=== PATIENT | male | born 1945 | race Caucasian/White ===

== ENCOUNTER 2019-05-13 08:28 | Emergency (ER) | payer MEDICARE, OTHER ==
[~2019-05-13] VITALS: Ht 177.8 cm; Wt 105.2 kg
[2019-05-13 08:31] VITALS: BP 140/80
[2019-05-13] MEDS ORDERED: DIPHTH,PERTUSS(ACELL),TET TOX 0.5 ML DISP.SYRIN. VAX IM ONE (09:00)
[2019-05-13] MEDS ORDERED: GELATIN SPONGE SIZE 12-7MM SPONGE. TP ONE (09:00)
--- NOTE | 2019-05-13 09:17 | PHYS DOC ---
Past Medical History Additional Past Medical Histor: ATHERSCLEROSIS Past Surgical History: Other Additional Past Surgical Histo: PVD BILAT LEGS Alcohol Use: Occasionally Drug Use: None Adult General Chief Complaint Chief Complaint: FINGER INJURY HPI HPI 73-year-old male presents to ER for complaints of getting his right middle finger stuck in the gradually more just prior to arrival. Patient reports when the tip of his right middle finger got stuck in the garage door he pulled backwards causing the pad of his finger to be pulled off. Patient denies any other injury. Patient is uncertain of last tetanus update. Patient is right hand dominant. Review of Systems Review of Systems Constitutional: Denies fatigue Musculoskeletal: Reports rt middle finger injury- mild pain at site Integument: Denies rash or skin lesions [] Neurologic: Denies focal weakness or sensory changes [] All other systems were reviewed and found to be within normal limits, except as documented in this note. Current Medications Current Medications Current Medications Medications (Trade) Dose Ordered Sig/Melani Start Time Stop Time Status Last Admin Dose Admin Diphtheria/ Tetanus/Acell Pertussis (Boostrix) 0.5 ml ONCE ONCE 05/13/19 09:00 05/13/19 09:01 DC 05/13/19 09:10 0.5 ML Gelatin (Gelfoam Size 12-7mm) 1 each 1X ONCE 05/13/19 09:00 05/13/19 09:01 DC 05/13/19 09:10 1 EACH Allergies Allergies Allergies Coded Allergies Type Severity Reaction Last Updated Verified Penicillins Allergy Severe RASH 05/13/19 Yes Physical Exam Physical Exam Constitutional: Well developed, well nourished, no acute distress, non-toxic appearance. [] HENT: Normocephalic, atraumatic, bilateral external ears normal, oropharynx moist, no oral exudates, nose normal. [] Eyes: PERRLA, EOMI, conjunctiva normal, no discharge. [] Neck: Normal range of motion, no tenderness, supple, no stridor. [] Cardiovascular:Heart rate regular rhythm, no murmur [] Lungs & Thorax: Bilateral breath sounds clear to auscultation [] Abdomen: Bowel sounds normal, soft, no tenderness, no masses, no pulsatile masses. [] Skin: Warm, dry, no erythema, no rash. [] Back: No tenderness, no CVA tenderness. [] Extremities: No tenderness, no cyanosis, no clubbing, ROM intact, no edema. [] Neurologic: Alert and oriented X 3, normal motor function, normal sensory function, no focal deficits noted. [] Psychologic: Affect normal, judgement normal, mood normal. [] Current Patient Data Vital Signs Vital Signs Date Time Temp Pulse Resp B/P (MAP) Pulse Ox O2 Delivery O2 Flow Rate FiO2 05/13/19 08:31 98.2 65 18 140/80 (100) 99 Room Air 98.2 EKG EKG [] Radiology/Procedures Radiology/Procedures PROCEDURE: FINGER(S) RIGHT Examination: FINGER(S) RIGHT History: Pain, injury to the middle finger distal tip Comparison/Correlation: None Findings: 3 images of the right third digit were obtained including PA view of the hand. Third metacarpal phalangeal joint degenerative narrowing is present. Mild joint space narrowing of the third digit distal interphalangeal joint noted. Mild degenerative narrowing of the first and second metacarpophalangeal joints noted. No acute fracture or bony destruction. Soft tissue swelling about the third digit distally is present. Curvilinear foreign body involving the second digit middle phalangeal level is present and measures 0.75 cm in length. Mild osteopenia. Impression: Degenerative changes particularly involving the third digit. No acute fracture. Foreign body involve the second digit. Correlate with history of injury. Electronically signed by: Alma Mart MD (05/13/2019 9:36 AM) [id number] DICTATED and SIGNED BY: ALMA MART MD DATE: 05/13/19 0936 Course & Med Decision Making Course & Med Decision Making Pertinent Imaging studies reviewed. (See chart for details) Pt was evaluated in the ER for complaints of left middle finger injury. Patient had avulsion to the plantar surface of distal left middle finger no nailbed involvement. X-ray was obtained no acute findings for fracture. X-ray results discussed with patient. Patient had a wound thoroughly cleanse no FB on exam. It was offered pain medication as well as digital block to left middle finger however reported pain to be minimal and preferred no medication or block. Patient had Surgicel gel foam applied to avulsion site- no bleeding thru foam. Dressing was applied an aluminum splint applied to left middle finger. Home wound care education provided. Patient to follow-up for wound recheck in 24-48 hours he plans to follow-up with his primary care physician to find out who they prefer for hand doctor. Patient remained PMS intact in right upper extremity. Patient was updated on tetanus. Will provide patient with prescription for Keflex. Education provided on signs and symptoms to return to ER. Discharge instructions were discussed. Patient to follow-up with primary care physician if symptoms persist or with any concerns. Dragon Disclaimer Dragon Disclaimer This electronic medical record was generated, in whole or in part, using a voice recognition dictation system. Departure Departure Impression: Primary Impression: Avulsion, finger tip Referrals: UNKNOWN PCP NAME (PCP) Patient Instructions: Finger Avulsion, Fingertip Injuries and Amputations Additional Instructions: Follow-up with your primary care physician in one to 2 days for wound reevaluation and to discuss who he would like you to follow-up with for hand specialist. Tylenol and/or ibuprofen as needed for pain as directed on container. Wear the aluminum splint to protect the finger injury. Takes the splint and dressing off to monitor site for infection- with concerns follow-up with your doctor. Scripts Cephalexin (KEFLEX) 500 Mg Capsule 1 CAP PO BID, #14 CAP 0 Refills Prov: KYLE CROWLEY APRN 05/13/19 KYLE CROWLEY APRN May 13, 2019 09:17
--- NOTE | 2019-05-13 09:40 | RAD ---
Examination: FINGER(S) RIGHT History: Pain, injury to the middle finger distal tip Comparison/Correlation: None Findings: 3 images of the right third digit were obtained including PA view of the hand. Third metacarpal phalangeal joint degenerative narrowing is present. Mild joint space narrowing of the third digit distal interphalangeal joint noted. Mild degenerative narrowing of the first and second metacarpophalangeal joints noted. No acute fracture or bony destruction. Soft tissue swelling about the third digit distally is present. Curvilinear foreign body involving the second digit middle phalangeal level is present and measures 0.75 cm in length. Mild osteopenia. Impression: Degenerative changes particularly involving the third digit. No acute fracture. Foreign body involve the second digit. Correlate with history of injury. Electronically signed by: Emre Santizo MD (05/13/2019 9:36 AM) [id number]
[2019-05-13] MEDS ORDERED: CEPH-264 PO (10:09)
== END 2019-05-13 10:20 | disposition home or self-care (01) ==
LOC: ER 08:28
DX: S61.302A Unspecified open wound of right middle finger with damage to nail, initial encounter (principal); Z88.0 Allergy status to penicillin; W23.0XXA Caught, crushed, jammed, or pinched between moving objects, initial encounter; Y93.89 Activity, other specified; Y92.89 Other specified places as the place of occurrence of the external cause; Y99.8 Other external cause status
CPT/HCPCS: 29130; 73140; 90471; 90715; 99284